=== PATIENT | female | born 1980 | race American Indian/Alaskan Native ===

== ENCOUNTER 2019-05-24 12:20 | Outpatient (CLI) | payer OTHER | END 2019-05-24 13:03 | disposition home or self-care (01) | LOC: NST 12:20 | DX: Z34.83 Encounter for supervision of other normal pregnancy, third trimester (principal) ==

== ENCOUNTER 2019-05-24 14:44 | Inpatient (IN) | payer OTHER ==
[~2019-05-24] VITALS: Ht 154.9 cm; Wt 52.6 kg
[2019-06-07] MEDS ORDERED: SYNTHROID137 MCG PO (14:17)
[2019-06-07] MEDS ORDERED: PRENATAL TABLE1 EAC1 PO (14:18)
== END 2019-06-09 15:08 | disposition home or self-care (01) | DRG 807 ==
LOC: LDR 06-07 13:09 → OB/GYN 06-07 13:09
PROVIDERS: ADMIT Obstetrics & Gynecology Maternal & Fetal Medicine
PROC: 10E0XZZ Delivery of Products of Conception, External Approach (ICD-10-PCS; principal; 2019-06-07)
PROC: 0KQM0ZZ Repair Perineum Muscle, Open Approach (ICD-10-PCS; 2019-06-07)
PROC: 3E033VJ Introduction of Other Hormone into Peripheral Vein, Percutaneous Approach (ICD-10-PCS; 2019-06-07)
PROC: 10907ZC Drainage of Amniotic Fluid, Therapeutic from Products of Conception, Via Natural or Artificial Opening (ICD-10-PCS; 2019-06-07)
PROC: 4A1HXCZ Monitoring of Products of Conception, Cardiac Rate, External Approach (ICD-10-PCS; 2019-06-07)
DX: O70.1 Second degree perineal laceration during delivery (principal); Z37.0 Single live birth; Z3A.37 37 weeks gestation of pregnancy